=== PATIENT | male | born 1950 | race Caucasian/White ===

== ENCOUNTER 2019-01-02 18:14 | Inpatient (IN) ==
[2019-01-02] MEDS ORDERED: IOPAMIDOL 100 ML BOTTLE IV ONE (18:15)
[2019-01-02] MEDS ORDERED: ONDANSETRON 4 MG/2 ML VIAL IV ONE (18:31)
[2019-01-02] MEDS ORDERED: HYDROmorphone 2 MG/ML VIAL IV PRN (18:31)
[2019-01-02] MEDS ORDERED: 0.9 % SODIUM CHLORIDE 1,000 ML IV ONE ×3 (18:31→22:23)
[2019-01-02] MEDS ORDERED: IPRATROPIUM/ALBUTEROL 3 ML AMPUL.NEB NEB ONE (18:32)
[2019-01-02] MEDS ORDERED: VANCOMYCIN 1,000 MG in 0.9 % SODIUM CHLORIDE 250 ML IV ONE (18:33)
[2019-01-02] MEDS ORDERED: PIPERACILLIN SODIUM/TAZOBACTAM 3.375 GM in DEXTROSE 5% IN WATER 50 ML IV ONE (18:33)
--- NOTE | 2019-01-02 18:37 | Emergency Department Note ---
Abdominal Pain HPI - General Chief Complaint: Abdominal Pain Stated Complaint: Lower Abdominal Swelling/Pain Time Seen by Provider: 01/02/19 18:19 Source: patient Mode of arrival: ambulatory Limitations: no limitations - History of Present Illness HPI Narrative: 68-year-old male here for dyspnea and flank pain. He is febrile. He was in [facility] for pneumonia 3 weeks ago and then released. He had a Hollis catheter for urinary retention while there. Complaining of worsening dyspnea here. He is not on oxygen. He continues to smoke despite known COPD. He is having trouble urinating here as well. Patient notes that he had a traumatic fall against a chair fractured multiple left-sided ribs in the recent past - Related Data Home Medications Medication Instructions Recorded Confirmed albuterol sulfate 0.63 mg/3 mL 0.63 mg INHALATION Q4H PRN ml 06/01/18 11/30/18 solution for nebulization unknown medication restless leg PO 09/27/18 11/30/18 ciprofloxacin 750 mg tablet 750 mg PO BID 11/30/18 11/30/18 furosemide 40 mg tablet 40 mg PO QDAY 11/30/18 11/30/18 omeprazole 20 mg tablet,delayed 20 mg PO QDAY 11/30/18 11/30/18 release potassium chloride ER 10 mEq 10 meq PO QDAY 11/30/18 11/30/18 capsule,extended release prednisone 10 mg tablet 10 mg PO QDAY 11/30/18 11/30/18 ropinirole 5 mg tablet 5 mg PO TID 11/30/18 11/30/18 Previous Rx's Medication Instructions Recorded albuterol sulfate HFA 90 2 puff INHALATION TID PRN #54 g 07/06/18 mcg/actuation aerosol inhaler budesonide-formoterol HFA 160 2 puff INHALATION Q12H #30.6 g 07/06/18 mcg-4.5 mcg/actuation aerosol inhaler tiotropium bromide 2.5 2 puff INHALATION QDAY #12 g 07/06/18 mcg/actuation mist for inhalation Allergies Allergy/AdvReac Type Severity Reaction Status Date / Time No Known Drug Allergies Allergy Verified 11/30/18 10:46 Review of Systems All systems ED: reviewed and negative except as stated. Abdominal Pain PMH - Past Medical History Attestation: Yes: The following information was validated with the patient. PMFSH Narrative: Family History (Last Reviewed 11/30/18 @ 11:11 by Florentino Nam MD) Father Cancer Other No pertinent family history Medical History (Last Reviewed 11/30/18 @ 11:11 by Florentino Nam MD) Pulmonary nodules (Chronic) Hiatal hernia (Chronic) Gastroesophageal reflux disease (Chronic) Tobacco use (Chronic) HAYDEN (obstructive sleep apnea) (Chronic) COPD (chronic obstructive pulmonary disease) (Chronic) Other asthma (Chronic) Restless legs (Chronic) Smoking (Chronic) Chronic obstructive pulmonary disease with acute exacerbation (Chronic) Past Surgical History (Last Reviewed 11/30/18 @ 11:11 by Florentino Nam MD) No pertinent past surgical history (Chronic) Medical history: Reports: other (Large prostate) - Social History Smoking status: Current every day smoker Physical Exam Thin male with kyphotic posture noted. Normocephalic atraumatic. Bilateral mild conjunctival injection without icterus. No nasal discharge or congestion. Oropharynx is pink and moist. Neck is supple without lymphadenopathy thyromeg herbert or carotid bruit. Heart is regular rate and rhythm. Inferiorly displaced PMI. He is not moving air well and has notable rhonchi in all lung krishna but right upper field is the worst. I do not hear rales. Abdomen is soft nontender nondistended. No peritoneal signs but he is guarding a little bit. Flank tenderness is noted. No pedal edema. He is able to answer questions appropriately. Alert and oriented Limitations: no limitations Course Vital Signs Temperature 101.1 F H 01/02/19 18:15 Pulse Rate 88 01/02/19 18:15 Respiratory Rate 24 H 01/02/19 18:15 Blood Pressure 135/75 01/02/19 18:15 Pulse Oximetry (%) 90 01/02/19 18:15 Temperature 101.1 F H 01/02/19 18:15 Pulse Rate 69 01/02/19 22:09 Respiratory Rate 14 01/02/19 22:09 Blood Pressure 121/66 01/02/19 22:09 Pulse Oximetry (%) 96 01/02/19 22:09 Abdominal Pain - Lab Data Lab results reviewed: Yes I reviewed the patient's lab results. Result diagrams: 01/02/19 18:40 01/02/19 18:40 Lab Results 01/02/19 01/02/1919 Range/Units 18:40 18:40 18:40 WBC 10.6 (4.5-11.0) K/mcL RBC 4.23 L (4.50-5.90) M/mcL Hgb 13.7 (13.5-16.5) g/dL Hct 41.2 (41.0-55.0) % POC Hct 41.0 (41.0-55.0) % MCV 97.4 (80.0-100.0) fL MCH 32.4 (26.0-34.0) pg MCHC 33.3 (31.0-36.0) g/dL RDW 15.3 H (11.5-14.5) % Plt Count 219 (140-440) K/mcL MPV 8.8 (7.4-10.4) fL Gran % 78.6 H (38.0-78.0) % Lymph % (Auto) 15.0 L (15.5-49.0) % Glenn % (Auto) 5.9 (1.0-12.0) % Eos % (Auto) 0.1 (0.0-7.0) % Baso % (Auto) 0.4 (0.0-2.0) % Gran # 8.3 H (1.8-8.0) K/mcL Lymph # (Auto) 1.6 (1.5-4.8) K/mcL Glenn # (Auto) 0.6 (0.1-0.9) K/mcL Eos # (Auto) 0 (0.0-0.7) K/mcL Baso # (Auto) 0 (0.0-0.3) K/mcL VBG Lactic Acid (0.5-2.0) mmol/L POC Sodium 141 (133-145) mmol/L Sodium 144 (133-145) mmol/L POC Potassium 3.7 (3.3-5.1) mmol/L Potassium 3.8 (3.3-5.1) mmol/L POC Chloride 104 (96-108) mmol/L Chloride 105 (96-108) mmol/L Carbon Dioxide 27 (22-30) mmol/L POC Total CO2 28 (22-30) mmol/L Anion Gap 12.0 (8-16) POC BUN 28 H (8-23) mg/dl BUN 27 H (8-23) mg/dl Creatinine 0.8 (0.7-1.2) mg/dl POC Creatinine 0.7 (0.7-1.2) mg/dl GFR Calculation 91 Glucose 76 (70-105) mg/dL POC Glucose 73 (70-105) mg/dL Calcium 9.2 (8.6-10.4) mg/dl POC WB Ioniz Calcium 1.18 (1.16-1.32) mmol/L Total Bilirubin 0.3 (0.0-1.0) mg/dL AST 14 (0-37) U/l ALT 13 (0-40) U/l Alkaline Phosphatase 95 (39-117) U/L Troponin T (0-0.03) ng/ml Total Protein 6.5 (5.9-8.4) gm/dL Albumin 3.8 (3.2-5.2) gm/dL Globulin 2.7 (2.2-3.7) gm/dL Albumin/Globulin Ratio 1.4 (1.0-2.3) Lipase 17 (7-60) U/L Procalcitonin < 0.05 (<0.10) ng/mL 01/02/19 01/02/19 Range/Units 18:40 19:08 WBC (4.5-11.0) K/mcL RBC (4.50-5.90) M/mcL Hgb (13.5-16.5) g/dL Hct (41.0-55.0) % POC Hct (41.0-55.0) % MCV (80.0-100.0) fL MCH (26.0-34.0) pg MCHC (31.0-36.0) g/dL RDW (11.5-14.5) % Plt Count (140-440) K/mcL MPV (7.4-10.4) fL Gran % (38.0-78.0) % Lymph % (Auto) (15.5-49.0) % Glenn % (Auto) (1.0-12.0) % Eos % (Auto) (0.0-7.0) % Baso % (Auto) (0.0-2.0) % Gran # (1.8-8.0) K/mcL Lymph # (Auto) (1.5-4.8) K/mcL Glenn # (Auto) (0.1-0.9) K/mcL Eos # (Auto) (0.0-0.7) K/mcL Baso # (Auto) (0.0-0.3) K/mcL VBG Lactic Acid 2.0 (0.5-2.0) mmol/L POC Sodium (133-145) mmol/L Sodium (133-145) mmol/L POC Potassium (3.3-5.1) mmol/L Potassium (3.3-5.1) mmol/L POC Chloride (96-108) mmol/L Chloride (96-108) mmol/L Carbon Dioxide (22-30) mmol/L POC Total CO2 (22-30) mmol/L Anion Gap (8-16) POC BUN (8-23) mg/dl BUN (8-23) mg/dl Creatinine (0.7-1.2) mg/dl POC Creatinine (0.7-1.2) mg/dl GFR Calculation Glucose (70-105) mg/dL POC Glucose (70-105) mg/dL Calcium (8.6-10.4) mg/dl POC WB Ioniz Calcium (1.16-1.32) mmol/L Total Bilirubin (0.0-1.0) mg/dL AST (0-37) U/l ALT (0-40) U/l Alkaline Phosphatase (39-117) U/L Troponin T < 0.01 (0-0.03) ng/ml Total Protein (5.9-8.4) gm/dL Albumin (3.2-5.2) gm/dL Globulin (2.2-3.7) gm/dL Albumin/Globulin Ratio (1.0-2.3) Lipase (7-60) U/L Procalcitonin (<0.10) ng/mL Arterial blood gas showed elevated CO2 and hypoxia - Radiology Data Radiology results reviewed: Yes I reviewed the patient's radiology results. CT scan of the chest abdomen pelvis show multiple chronic findings. Concern for some secretions in the right mainstem bronchus which could be from aspiration. Notable left-sided multiple rib fractures. Disposition Pt seen by APPRENTICE ARCHITECT/PA only: No Clinical Impression: Dehydration, Hypoxia Aspiration pneumonia Qualifiers: Aspiration pneumonia type: unspecified Laterality: right Lung location: unspecified part of lung Qualified Code(s): J69.0 - Pneumonitis due to inhalation of food and vomit Summary: Suspect that flank pain caused by urinary retention again from large prostate plus or minus a urinary tract infection. Ordered bladder scan and urinalysis Dyspnea likely secondary to COPD but possible pneumonia as well with fever of 101. Start blood cultures and Zosyn and vancomycin for possible sepsis versus Sirs-patient has tachypnea and shortness of breath as well. ABG along with breathing treatment ABG shows mild hypercapnia and hypoxia. Oxygen started Patient received 2 L normal saline and did not urinate so bladder scan was done again-this showed 96 mL. Ordered another liter of fluid; creatinine was normal. He stated that he would need his prostate medicine in order to urinate so I ordered max dose tamsulosin for him CT scan shows possible aspiration but otherwise no cause noted for fever I discussed results with the patient. Because of the dehydration and fever, with likely aspiration pneumonia and hypoxia/hypercapnia I do think this patient needs to come in the hospital. I discussed the case with Dr. Matt, hospitalist who agreed to accept the patient for further care and evaluation Disposition: Xfer As Inpt ([facility]) Condition: Fair Referrals: Mohit Galarza ARNP [Primary Care Provider] -
[2019-01-02 18:56] LABS: POC Blood Urea Nitrogen 28 mg/dl (8-23); POC CO2 28 mmol/L (22-30); POC Calcium, Ionized 1.18 mmol/L (1.16-1.32); POC Chloride 104 mmol/L (96-108); POC Creatinine 0.7 mg/dl (0.7-1.2); POC Glucose, Random 73 mg/dL (70-105); POC Potassium 3.7 mmol/L (3.3-5.1); POC Sodium 141 mmol/L (133-145)
[2019-01-02 19:39] LABS: Basophils # (Auto) 0 K/mcL (0.0-0.3); Basophils % (Auto) 0.4 % (0.0-2.0); Eosinophils # (Auto) 0 K/mcL (0.0-0.7); Eosinophils % (Auto) 0.1 % (0.0-7.0); Granulocytes % (Auto) 78.6 % (38.0-78.0); Hematocrit 41.2 % (41.0-55.0); Hemoglobin 13.7 g/dL (13.5-16.5); Lymphocytes # (Auto) 1.6 K/mcL (1.5-4.8); Mean Cell Volume 97.4 fL (80.0-100.0); Mean Corpuscular HGB Conc 33.3 g/dL (31.0-36.0); Mean Platelet Volume 8.8 fL (7.4-10.4); Monocytes # (Auto) 0.6 K/mcL (0.1-0.9); Monocytes % (Auto) 5.9 % (1.0-12.0); Platelet Count 219 K/mcL (140-440); RBC 4.23 M/mcL (4.50-5.90); Red Cell Distribution Width 15.3 % (11.5-14.5); WBC 10.6 K/mcL (4.5-11.0)
[2019-01-02 19:59] LABS: ALT/SGPT 13 U/l (0-40); AST/SGOT 14 U/l (0-37); Albumin 3.8 gm/dL (3.2-5.2); Albumin/Globulin Ratio 1.4 (1.0-2.3); Alkaline Phosphatase 95 U/L (39-117); Bilirubin,Total 0.3 mg/dL (0.0-1.0); Blood Urea Nitrogen 27 mg/dl (8-23); Calcium 9.2 mg/dl (8.6-10.4); Carbon Dioxide 27 mmol/L (22-30); Chloride 105 mmol/L (96-108); Globulin 2.7 gm/dL (2.2-3.7); Glomerular Filtration Rate 91; Glucose 76 mg/dL (70-105)
[2019-01-02] MEDS ORDERED: TAMSULOSIN 0.4 MG CAPSULE PO ONE (22:30)
--- NOTE | 2019-01-02 22:42 | Internal Med History&Physical ---
Medical - H&P: [facility] Patient information: Note initiated : 01/02/19 at 10:40 pm Service Date, if different from initiated Date: [] Patient: Rob Ulrich a 68 y/o M admitted on for Lower Abdominal Swelling/Pain. Chief Complaint: [] History of present illness: Mr. Ulrich is a 68 year old M Presents to the ED complaining of lower abdominal swelling and cramping. He also feels constipated. Last bowel movement 2 days ago. He is also complaining of dyspnea. He feels because of the abdominal discomfort he is unable to fully cough up his phlegm. He has a chronic bronchitis cough productive of phlegm. He also feels wheezy. His breathing is been getting worse over the past few days. He also reports decreased urination, he reports poor oral intake Recently at [facility] for COPD exacerbation. Also found of urinary retention at that time and a Hollis was placed. In the ED he was found to have a fever of 101. No leukocytosis and procalcitonin was low. His lactate was 2.0. He was requiring oxygen and his PaO2 on room air was 55. CT chest abdomen pelvis showed some secretions in the right bronchus and apical scarring as well as emphysema.'s abdominal pelvic film showed a right inguinal hernia and moderate stool and gas throughout. He follows with Dr. Nam and is supposed to be on 3 L with any activity and 2 L at night. However, he does not adhere to that regimen. He appears quite labored, with conversational dyspnea. He denies any fevers or chills. Denies chest pain. States he has a CPAP machine at home but does not use it. Review of Systems: Pertinent positives as above. Denies he adache/fever/chills/nausea/vomiting/chest or abdominal pain/diarrhea. Remaining 10 point review of system reviewed negative Medical - H&P: PMH Medical history: Medical History (Last Reviewed 11/30/18 @ 11:11 by Florentino Nam MD) Pulmonary nodules (Chronic) Hiatal hernia (Chronic) Gastroesophageal reflux disease (Chronic) Tobacco use (Chronic) HAYDEN (obstructive sleep apnea) (Chronic) COPD (chronic obstructive pulmonary disease) (Chronic) Other asthma (Chronic) Restless legs (Chronic) Smoking (Chronic) Chronic obstructive pulmonary disease with acute exacerbation (Chronic) Past Surgical History (Last Reviewed 11/30/18 @ 11:11 by Florentino Nam MD) Cataract surgery Family History (Last Reviewed 11/30/18 @ 11:11 by Florentino Nam MD) Father Cancer Other No pertinent family history Social History (Last Updated 11/30/18 @ 13:18 by Florentino Nam MD) Half pack per day smoker Rare alcohol Lives by himself Ambulatory independent Medical - H&P: Meds Home Medications Medication Instructions Recorded Confirmed Type albuterol sulfate 0.63 mg/3 mL 0.63 mg INHALATION Q4H PRN ml 06/01/18 11/30/18 History solution for nebulization albuterol sulfate HFA 90 2 puff INHALATION TID PRN #54 g 07/06/18 11/30/18 Rx mcg/actuation aerosol inhaler budesonide-formoterol HFA 160 2 puff INHALATION Q12H #30.6 g 07/06/18 11/30/18 Rx mcg-4.5 mcg/actuation aerosol inhaler tiotropium bromide 2.5 2 puff INHALATION QDAY #12 g 07/06/18 11/30/18 Rx mcg/actuation mist for inhalation unknown medication restless leg PO 09/27/18 11/30/18 History ciprofloxacin 750 mg tablet 750 mg PO BID 11/30/18 11/30/18 History furosemide 40 mg tablet 40 mg PO QDAY 11/30/18 11/30/18 History omeprazole 20 mg tablet,delayed 20 mg PO QDAY 11/30/18 11/30/18 History release potassium chloride ER 10 mEq 10 meq PO QDAY 11/30/18 11/30/18 History capsule,extended release prednisone 10 mg tablet 10 mg PO QDAY 11/30/18 11/30/18 History ropinirole 5 mg tablet 5 mg PO TID 11/30/18 11/30/18 History Allergies Allergy/AdvReac Type Severity Reaction Status Date / Time No Known Drug Allergies Allergy Verified 11/30/18 10:46 Medical - H&P: Exam - Constitutional Vitals: Temp Pulse Resp BP Pulse Ox 101.1 F H 69 14 121/66 96 01/02/19 18:15 01/02/19 22:09 01/02/19 22:09 01/02/19 22:09 01/02/19 22:09 Exam: General: Alert, Awake, No acute Distress Eyes/N/T: EOMI, PEERL, DMM Head/Neck: neck supple, normocephalic atraumatic CV: RRR, No murmurs, normal s1/s2 Pulm: Diffuse bilateral wheezing and somewhat diminished, no rales Abd: soft, nontender, +BS x4, protuberant lower abdomen Ext: no clubbing/cyanosis/edema Neuro: Alert, no focal deficits, moves all extremities, CN 2-12 grossly intact, symmetrical strength b/l upper/lower, sensations intact b/l upper/lower Skin: warm/dry Medical - H&P: Reslt - Labs CBC & Chem 7: 01/02/19 18:40 01/02/19 18:40 Labs: Short CBC 01/02/19 Range/Units 18:40 WBC 10.6 (4.5-11.0) K/mcL Hgb 13.7 (13.5-16.5) g/dL Hct 41.2 (41.0-55.0) % Plt Count 219 (140-440) K/mcL BMP 01/02/19 18:40 Sodium 144 Potassium 3.8 Chloride 105 Carbon Dioxide 27 BUN 27 H Creatinine 0.8 Glucose 76 Calcium 9.2 Cardiac Enzymes 01/02/19 Range/Units 18:40 Troponin T < 0.01 (0-0.03) ng/ml Liver Function 01/02/19 Range/Units 18:40 Total Bilirubin 0.3 (0.0-1.0) mg/dL AST 14 (0-37) U/l ALT 13 (0-40) U/l Alkaline Phosphatase 95 (39-117) U/L Albumin 3.8 (3.2-5.2) gm/dL - Impressions CT chest abdomen pelvis with apical scarring secretions in the right bronchus inguinal hernia in the right moderate gas and stool throughout Medical - H&P: A/P - Narrative A/P Narrative: Assessment: *COPD exacerbation (3L w/Activity & 2L@night but not compliant) -follows with Dr. Nam -pct low *Aspiration of secretions: *Acute on chronic hypoxic respiratory failure and chronic hypercapnia: *Constipation: *Volume depletion: *HAYDEN noncompliant with CPAP: *BPH: Urinary retention at [facility] November admission *Tobacco abuse: *Pulmonary nodules: *GERD: *Cachexia/Malnutrition: * Plan: -Steroids (wean), nebs/RT, supp O2 -IS/Acapella -ST eval, dysphagia diet per ST -Bowel Regimen -hold home lasix -Dietary consult -s/p IVF's -pt/ot -ppx: lovenox/home ppi DNR
[2019-01-02 23:44] LABS: Lymphocytes % 19 % (15-49); Monocytes % (Manual) 8 % (1-12); Platelet Estimate NORMAL (NORMAL); RBC Morphology NORMAL (NORMAL); Segmented Neutrophils % 73 % (38-78)
[2019-01-02] MEDS ORDERED: MINERAL OIL 1 DOSE ENEMA PR ONE (23:46)
[2019-01-03] LABS: Appearance,Urine CLEAR; Bilirubin,Urine NEG (NEG); Color,Urine YELLOW; Culture Indicated,Urine NO; Glucose,Urine (UA) NEGATIVE (NEG); Ketones,Urine NEG (NEG); Leukocyte Esterase,Urine NEG /uL (NEG); Nitrate,Urine NEG (NEG); Protein,Urine NEG (NEG); Specific Gravity,Urine > 1.060 (1.000-1.035); Urine Blood NEG mg/dL (<0.03); Urobilinogen,Urine NEG (NEG)
[2019-01-03] MEDS ORDERED: POTASSIUM CHLORIDE 40 MEQ in DEXTROSE 5% IN WATER 500 ML IV PRN ×2 (00:07→11:09)
[2019-01-03] MEDS ORDERED: PROMETHAZINE 25 MG TABLET PO PRN ×2 (00:07→11:09)
[2019-01-03] MEDS ORDERED: ACETAMINOPHEN 325 MG TABLET PO PRN ×2 (00:07→11:09)
[2019-01-03] MEDS ORDERED: POTASSIUM CHLORIDE 20 MEQ TABLET PO PRN ×4 (00:07→11:09)
[2019-01-03] MEDS ORDERED: IPRATROPIUM/ALBUTEROL 3 ML AMPUL.NEB NEB PRN ×2 (00:07→11:09)
[2019-01-03] MEDS ORDERED: LACTULOSE 20 GM/30 ML ORAL.SOL PO ONE (00:07)
[2019-01-03] MEDS ORDERED: HYDROcodone/APAP 5/325MG TABLET PO PRN ×2 (00:07→11:09)
[2019-01-03] MEDS ORDERED: methylPREDNISolone SOD SUCC 125 MG/2 ML VIAL IV ONE (00:07)
[2019-01-03] MEDS ORDERED: MINERAL OIL 1 DOSE ENEMA PR ONE (00:07)
[2019-01-03] MEDS ORDERED: MAGNESIUM SULFATE 2 GM/50 ML BAG IV PRN ×2 (00:07→11:09)
[2019-01-03] MEDS ORDERED: POLYETHYLENE GLYCOL 3350 17 GM PACKET PO PRN ×2 (00:07→11:09)
[2019-01-03] MEDS ORDERED: SENNOSIDES 1 TABLET PO PRN ×2 (00:07→21:00)
[2019-01-03] MEDS ORDERED: SENNOSIDES 1 TABLET PO ONE ×2 (00:07→14:38)
[2019-01-03] MEDS ORDERED: METOCLOPRAMIDE 10 MG/2 ML VIAL IV PRN ×2 (00:07→11:09)
[2019-01-03] MEDS ORDERED: ONDANSETRON 4 MG/2 ML VIAL IV PRN ×2 (00:07→11:09)
[2019-01-03] MEDS ORDERED: LACTULOSE 20 GM/30 ML ORAL.SOL PO PRN ×2 (00:07→11:09)
[2019-01-03] MEDS ORDERED: LACTULOSE 20 GM/30 ML ORAL.SOL ONE (00:44)
[2019-01-03] MEDS ORDERED: methylPREDNISolone SOD SUCC 125 MG/2 ML VIAL ONE (00:44)
[2019-01-03] MEDS ORDERED: IPRATROPIUM/ALBUTEROL 3 ML AMPUL.NEB NEB ONE (01:14)
[2019-01-03] MEDS: IPRATROPIUM/ALBUTEROL 3 ML AMPUL.NEB NEB SCH ×4 (02:00→19:39)
[2019-01-03] MEDS ORDERED: BISACODYL 10 MG SUPP.RECT PR ONE ×2 (05:39→05:40)
[2019-01-03 05:59] LABS: Basophils # (Auto) 0 K/mcL (0.0-0.3); Basophils % (Auto) 0.2 % (0.0-2.0); Eosinophils # (Auto) 0 K/mcL (0.0-0.7); Eosinophils % (Auto) 0.2 % (0.0-7.0); Granulocytes % (Auto) 93.6 % (38.0-78.0); Hematocrit 42.8 % (41.0-55.0); Hemoglobin 13.8 g/dL (13.5-16.5); Lymphocytes # (Auto) 0.6 K/mcL (1.5-4.8); Lymphocytes % (Auto) 4.9 % (15.5-49.0); Mean Cell Volume 99.7 fL (80.0-100.0); Mean Corpuscular HGB Conc 32.2 g/dL (31.0-36.0); Mean Platelet Volume 8.8 fL (7.4-10.4); Monocytes # (Auto) 0.1 K/mcL (0.1-0.9); Monocytes % (Auto) 1.1 % (1.0-12.0); Platelet Count 231 K/mcL (140-440); RBC 4.29 M/mcL (4.50-5.90); Red Cell Distribution Width 15.5 % (11.5-14.5); WBC 11.7 K/mcL (4.5-11.0)
[2019-01-03] MEDS ORDERED: 0.9 % SODIUM CHLORIDE 10 ML SYRINGE IV SCH (06:00)
[2019-01-03 07:29] LABS: ALT/SGPT 13 U/l (0-40); AST/SGOT 15 U/l (0-37); Albumin 3.7 gm/dL (3.2-5.2); Albumin/Globulin Ratio 1.3 (1.0-2.3); Alkaline Phosphatase 99 U/L (39-117); Bilirubin,Direct < 0.2 mg/dL (0.0-0.3); Bilirubin,Total 0.4 mg/dL (0.0-1.0); Blood Urea Nitrogen 21 mg/dl (8-23); Calcium 8.6 mg/dl (8.6-10.4); Carbon Dioxide 22 mmol/L (22-30); Chloride 110 mmol/L (96-108); Globulin 2.8 gm/dL (2.2-3.7); Glomerular Filtration Rate 91; Glucose 88 mg/dL (70-105); Lactate Dehydrogenase 250 U/L (94-250); Phosphorous 2.9 mg/dL (2.7-4.5); Triglycerides 60 mg/dl (<150); Uric Acid 4.5 mg/dL (2.5-8.0)
--- NOTE | 2019-01-03 07:39 | Internal Med Progress Note ---
Medical - PN: Subj Patient information: Note initiated : 01/03/19 at 7:33 am Service Date, if different from initiated Date: [] Patient: Rob Ulrich a 68 y/o M admitted on 01/03/19 for Lower Abdominal Swelling/Pain. Chief Complaint: [] Interval history: Mr. Ulrich is a 68 year old M Presents to the ED complaining of lower abdominal swelling and cramping. He also feels constipated. Last bowel movement 2 days ago. He is also complaining of dyspnea. He feels because of the abdominal discomfort he is unable to fully cough up his phlegm. He has a chronic bronchitis cough productive of phlegm. He also feels wheezy. His breathing is been getting worse over the past few days. He also reports decreased urination, he reports poor oral intake Recently at [facility] for COPD exacerbation. Also found of urinary retention at that time and a Hollis was placed. In the ED he was found to have a fever of 101. No leukocytosis and procalcitonin was low. His lactate was 2.0. He was requiring oxygen and his PaO2 on room air was 55. CT chest abdomen pelvis showed some secretions in the right bronchus and apical scarring as well as emphysema.'s abdominal pelvic film showed a right inguinal hernia and moderate stool and gas throughout. He follows with Dr. Nam and is supposed to be on 3 L with any activity and 2 L at night. However, he does not adhere to that regimen. He appears quite labored, with conversational dyspnea. He denies any fevers or chills. Denies chest pain. States he has a CPAP machine at home but does not use it. 01/03 Refused straight cath last night. However this morning, unable to urinate and becoming very uncomfortable. Several attempts at straight cath per nursing schuyler led, Dr. Henning contacted and placed Hollis catheter. He much better after the catheter placed. He much better overall. Breathing is much improved. Feels like he is able to cough more. No bowel movement yet but feels like he needs to go soon. Review of Systems: denies headache/fever/chills/nausea/vomiting/chest or abdominal pain/diarrhea. Otherwise see above. - Constitutional Vitals: Vital Signs Temp Pulse Resp BP Pulse Ox 98.9 F 74 20 123/80 90 01/03/19 04:00 01/03/19 07:04 01/03/19 07:04 01/03/19 04:00 01/03/19 04:00 Period Temp Pulse Resp BP Sys/Zheng Pulse Ox Last 24 Hr 98.6 F-101.1 F 66-88 12-24 109-161/59-94 85-99 Intake and Output 01/02/19 01/03/19 01/03/19 21:59 05:59 13:59 Intake Total 1300 2000 Output Total 0 Balance 1300 1999 Weight 49.895 kg 53.581 kg Intake & Output: Intake & Output 01/02/19 01/03/19 01/03/19 21:59 05:59 13:59 Intake Total 1300 1999 Output Total 0 Balance 1300 1999 Weight 49.895 kg 53.581 kg Intake: IV 1300 2000 Sodium Chloride 0.9% 1,000 ml @ 1000 2000 Wide Open IV BOLUS ONE Rx#: [id number] Zosyn 3.375 gm In Dextrose 5% 50 in Water 50 ml @ 100 mls/hr IV ONCE ONE Rx#:[id number] Vancomycin 1,000 mg In Sodium 250 Chloride 0.9% 250 ml @ 250 mls/ hr IV ONCE ONE Rx#:[id number] Output: Void Amount 0 Other: # Bowel Movements 0 Exam: General: Alert, Awake, No acute Distress Eyes/N/T: EOMI, Head/Neck: neck supple, CV: RRR, No murmurs, Pulm: mild b/l wheezing and somewhat diminished still, no rales Abd: soft, nontender, +BS x4, protuberant lower abdomen Ext: no clubbing/cyanosis/edema Neuro: Alert, no focal deficits, moves all extremities, Skin: warm/dry Medical - PN: Obj Da - Labs CBC & Chem 7: 01/03/19 04:10 01/03/19 04:10 Labs: Abnormal Lab Results 01/03/19 01/03/19 01/02/19 04:10 04:10 23:05 WBC 11.7 H RBC 4.29 L RDW 15.5 H Gran % 93.6 H Lymph % (Auto) 4.9 L Gran # 11.0 H Lymph # (Auto) 0.6 L Sodium 146 H Chloride 110 H POC BUN BUN Ur Specific Flushing > 1.060 H 01/02/19 01/02/19 18:40 18:40 WBC RBC 4.23 L RDW 15.3 H Gran % 78.6 H Lymph % (Auto) 15.0 L Gran # 8.3 H Lymph # (Auto) Sodium Chloride POC BUN 28 H BUN 27 H Ur Specific Flushing Meds: Medications Acetaminophen (Tylenol) 650 mg PO Q6HP PRN PRN Reason: PAIN/FEVER > 101 Hydrocodone Bitart/Acetaminophen ([place] 5/325mg) 1 tab PO Q4HP PRN PRN Reason: PAIN LEVEL 3-6 Last Admin: 01/03/19 05:53 Dose: 1 tab Documented by: Albuterol/Ipratropium (Duoneb) 3 ml NEB Q6HRT [facility] Last Admin: 01/03/19 07:04 Dose: 3 ml Documented by: Albuterol/Ipratropium (Duoneb) 3 ml NEB Q6HP PRN PRN Reason: Shortness Of Breath Budesonide (Pulmicort) 0.5 mg NEB Q12 [facility] Last Admin: 01/03/19 07:04 Dose: 0.5 mg Documented by: Docusate Sodium (Colace) 100 mg PO BID ZAINA Enoxaparin Sodium (Lovenox) 30 mg SQ DAILY ZAINA Famotidine (Pepcid) 20 mg PO BID ZAINA Potassium Chloride 40 meq/ (Dextrose) 520 mls @ 130 mls/hr IV UD PRN PRN Reason: Potassium < 3 Magnesium Sulfate (Magnesium Sulfate) 2 gm in 50 mls @ 50 mls/hr IV UD PRN PRN Reason: Magnesium </= 1.6 Lactulose (Cephulac) 10 gm PO DAILYP PRN PRN Reason: Constipation Methylprednisolone Sodium Succinate (Solu-Medrol) 62.5 mg IV Q12 [facility] Metoclopramide HCl (Reglan) 10 mg IV Q6HP PRN PRN Reason: Nausea And Vomiting Ondansetron HCl (Zofran) 4 mg IV Q4HP PRN PRN Reason: Nausea And Vomiting Polyethylene Glycol (Miralax) 17 gm PO DAILYP PRN PRN Reason: Constipation Potassium Chloride (Kdur) 40 meq PO UD PRN PRN Reason: Potssium is 3-3.5 Potassium Chloride (Kdur) 40 meq PO UD PRN PRN Reason: Potassium < 3 Promethazine HCl (Phenergan) 0 mg PO Q6HP PRN PRN Reason: Nausea And Vomiting Ropinirole HCl (Requip) 5 mg PO TID [facility] Senna (Senokot) 2 tab PO HSP PRN PRN Reason: Constipation Sodium Chloride (Saline Flush) 10 ml IV Q8 [facility] Last Admin: 01/03/19 06:02 Dose: 10 ml Documented by: Tamsulosin HCl (Flomax) 0.4 mg PO HS [facility] Medical - PN: A/P - Time Spent With Patient Total time spent is greater than 50% in coordination of care (as documented) at patient's floor/unit and/or counseling patient: - Narrative A/P Narrative: Assessment: *COPD exacerbation (3L w/Activity & 2L@night at home but is not compliant) -follows with Dr. Nam *?Aspiration of secretions: *Acute on chronic hypoxic respiratory failure and chronic hypercapnia: *Constipation: *Volume depletion: resolved *Urinary retention: Hollis catheter placed by Dr. Henning *BPH: Urinary retention at [facility] November admission *HAYDEN noncompliant with CPAP: *Tobacco abuse: *Pulmonary nodules: *GERD: *Cachexia/Malnutrition: * Plan: -Steroids (wean), nebs/RT, supp O2 -IS/Acapella -ST eval, dysphagia diet per ST -Bowel Regimen -hold home lasix -Dietary consult -Maintain Hollis upon discharge and follow-up with Dr. Henning -pt/ot -ppx: lovenox/home ppi DNR Medical - PN: Qual - VTE Deep Vein Thrombosis/Pulmonary Embolism Present on Admission: No
--- NOTE | 2019-01-03 07:46 | Consultation ---
DATE OF CONSULTATION: 01/03/2019 REQUESTING PHYSICIAN: Derrick Matt DO HISTORY OF PRESENT ILLNESS: The patient is a 68-year-old gentleman who was admitted to the hospital for exacerbation of his COPD. In the ER postvoid residual was checked and this was 100 mL. He has not been able to urinate since being admitted and I have been asked to place a catheter. The nurses did try to put in a catheter and this was a 14 Bulgarian straight catheter, and it curled up and there was blood on the catheter. He states that he has been having problems with urination prior to this. He is on Flomax and Proscar and these do not seem to help. He gets up three or four times during the night. He does have a poor stream and does not feel like he empties his bladder. He has never had any surgery on his prostate. He presents now for evaluation. PAST MEDICAL HISTORY: Significant for COPD, hiatal hernia, gastroesophageal reflux, obstructive sleep apnea. PAST SURGICAL HISTORY: Cataract surgery. ALLERGIES: None. CURRENT MEDICATIONS: Please see the patient's list. SOCIAL HISTORY: Half a pack per day smoker, lives by himself, non-. REVIEW OF SYSTEMS: CARDIAC: Denies any chest pain. RESPIRATORY: Shortness of breath, difficulty in breathing at times. : Please see above. The rest of a 12-point review of systems is negative. PHYSICAL EXAMINATION: GENERAL: This is a pleasant gentleman in slight distress. VITAL SIGNS: As listed per nurse's notes. NECK: Supple. Trachea is in the midline. Mucosa is without lesion. LUNGS: Clear to auscultation. HEART: Regular rate and rhythm. ABDOMEN: Soft, nontender. Bladder is distended. No hernias appreciated. GENITOURINARY: Scrotum without lesion. No hydrocele, no varicocele. Testicles are normal size and consistency. Epididymi are without cysts. Penis is circumcised without plaques. Meatus is at the end of his penis. RECTAL: Deferred. EXTREMITIES: Without clubbing, cyanosis, edema. NEUROLOGIC: Cranial nerves II-XII intact. LYMPHATIC: No adenopathy was noted. IMPRESSION: The patient with urinary retention. I feel at this point he does need a catheter because he is not able to urinate. He was prepped and draped and a 20 Bulgarian coude tip catheter was placed without any difficulty. I did use lidocaine jelly. His urine was clear. PLAN: I would leave the catheter in until his clinical situation improves and then we can remove it and see if he can urinate. He should go back on his regular medications. I will then follow up as an outpatient. JeysonZ:[email or web address] Job ID: [id number] Doc ID: [id number] Lonnie Henning MD
[2019-01-03] MEDS ORDERED: FAMOTIDINE 20 MG TABLET PO SCH (09:00)
[2019-01-03] MEDS ORDERED: ENOXAPARIN 30 MG/0.3 ML SYRINGE SQ SCH (09:00)
[2019-01-03] MEDS ORDERED: rOPINIRole 0.25 MG TABLET PO SCH (09:00)
[2019-01-03] MEDS ORDERED: methylPREDNISolone SOD SUCC 125 MG/2 ML VIAL IV SCH (09:00)
[2019-01-03] MEDS ORDERED: DOCUSATE SODIUM 100 MG CAPSULE PO SCH (09:00)
[2019-01-03] MEDS ORDERED: AZITHROMYCIN 500 MG in DEXTROSE 5% IN WATER 250 ML IV SCH (09:00)
[2019-01-03] MEDS ORDERED: rOPINIRole 1 MG TABLET PO SCH (09:00)
[2019-01-03] MEDS ORDERED: BUDESONIDE 0.5 MG/2 ML AMPUL.NEB NEB SCH (09:00)
--- NOTE | 2019-01-03 09:33 | Discharge Summary ---
Medical - DS: Prov Patient information: Note initiated : 01/03/19 at 9:30 am Service Date, if different from initiated Date: [] Patient: Rob Ulrich 68 y/o M admitted on 01/03/19 for Lower Abdominal Swelling/Pain. Chief Complaint: [] Date of admission: 01/03/19 00:01 Discharge date: 01/04/19 Primary care physician: FRANKLIN Medina Consults: 01/02/19 Consult to Physician [CONS] Stat Comment: Consulting Provider: Derrick Matt Reason For Exam: Physician to Consult 01/03/19 06:48 Consult to Physician [CONS] Routine Comment: UR Consulting Provider: Lonnie Henning Reason For Exam: Physician to Consult Medical - DS: Meds - Discharge Medications Prescriptions: predniSONE [Prednisone] 40 mg PO [facility] #1 tab Active and Home Medications: Home Medications albuterol sulfate 0.63 mg/3 mL solution for nebulization 0.63 mg INHALATION Q4H PRN ml 06/01/18 [History Confirmed 01/03/19 Last Taken 01/01/19 21:00] albuterol sulfate HFA 90 mcg/actuation aerosol inhaler 2 puff INHALATION TID PRN #54 g 07/06/18 [Rx Confirmed 01/03/19 Last Taken 01/01/19 21:00] budesonide-formoterol HFA 160 mcg-4.5 mcg/actuation aerosol inhaler 2 puff INHALATION Q12H #30.6 g 07/06/18 [Rx Confirmed 01/03/19 Last Taken 01/02/19 07:00] tiotropium bromide 2.5 mcg/actuation mist for inhalation 2 puff INHALATION QDAY #12 g 07/06/18 [Rx Confirmed 01/03/19 Last Taken 01/02/19 07:00] furosemide 40 mg tablet 40 mg PO QDAY 11/30/18 [History Confirmed 01/03/19 Last Taken Unknown] omeprazole 20 mg tablet,delayed release 20 mg PO QDAY 11/30/18 [History Confirmed 11/30/18 Last Taken Unknown] potassium chloride ER 10 mEq capsule,extended release 10 meq PO QDAY 11/30/18 [History Confirmed 11/30/18 Last Taken Unknown] prednisone 10 mg tablet 10 mg PO QDAY 11/30/18 [History Confirmed 11/30/18 Last Taken Unknown] ropinirole 5 mg tablet 5 mg PO TID 11/30/18 [History Confirmed 01/03/19 Last Taken 01/02/19 00:00] Methocarbamol [Robaxin] 500 mg PO PRN PRN 01/03/19 [History Confirmed 01/03/19 Last Taken 01/02/19 12:00] Tamsulosin [Flomax] 0.4 mg PO HS 01/03/19 [History Confirmed 01/03/19 Last Taken 01/01/19 21:00] Medical - DS: Hosp Hospital Course: Mr. Ulrich is a 68 year old M Presents to the ED complaining of lower abdominal swelling and cramping. He also feels constipated. Last bowel movement 2 days ago. He is also complaining of dyspnea. He feels because of the abdominal discomfort he is unable to fully cough up his phlegm. He has a chronic bronchitis cough productive of phlegm. He also feels wheezy. His breathing is been getting worse over the past few days. He also reports decreased urination, he reports poor oral intake Recently at [facility] for COPD exacerbation. Also found of urinary retention at that time and a Hollis was placed. In the ED he was found to have a fever of 101. No leukocytosis and procalcitonin was low. His lactate was 2.0. He was requiring oxygen and his PaO2 on room air was 55. CT chest abdomen pelvis showed some secretions in the right bronchus and apical scarring as well as emphysema.'s abdominal pelvic film showed a right inguinal hernia and moderate stool and gas throughout. He follows with Dr. Nam and is supposed to be on 3 L with any activity and 2 L at night. However, he does not adhere to that regimen. He appears quite labored, with conversational dyspnea. He denies any fevers or chills. Denies chest pain. States he has a CPAP machine at home but does not use it. 01/03 Refused straight cath last night. However this morning, unable to urinate and becoming very uncomfortable. Several attempts at straight cath per nursing failed, Dr. Henning contacted and placed Hollis catheter. He feels much better after the catheter placed. He is much better overall. Breathing is much improved. Feels like he is able to cough more. No bowel movement yet but feels like he needs to go soon. 01/04 He continues to feel much better. Doing well Center to go home. Stable for discharge follow-up with urology. Assessment: *COPD exacerbation (3L w/Activity & 2L@night at home but is not compliant) -follows with Dr. Nam *Acute on chronic hypoxic respiratory failure and chronic hypercapnia: *Constipation: *Volume depletion: resolved *Urinary retention: Hollis catheter placed by Dr. Henning *BPH: Urinary retention at [facility] admission *HAYDEN noncompliant with CPAP: *Tobacco abuse: *Pulmonary nodules: *GERD: *Cachexia Discharge diagnosis: COPD exacerbation acute on chronic hypoxic respiratory failure Secondary discharge diagnosis: Urinary retention constipation volume depletion BPH struct of sleep apnea noncompliant with CPAP tobacco abuse pulmonary nodules GERD cachexia - Time Spent with Patient Total time spent providing and/or coordinating discharge services: Greater than 30 minutes Medical - DS: Exam - Constitutional Vitals: Vital Signs Temp Pulse Resp BP BP Pulse Ox 01/03/19 07:04 74 20 01/03/19 04:58 86 L 01/03/19 04:00 98.9 F 20 123/80 90 01/03/19 02:02 85 L 01/03/19 00:58 98 01/03/19 00:20 98.6 F 12 118/77 97 01/03/19 00:17 98.6 F 86 12 118/77 98 01/03/19 00:12 97 01/02/19 23:53 86 18 112/73 99 01/02/19 22:31 75 18 120/75 94 01/02/19 22:09 69 14 121/66 96 01/02/19 21:31 66 12 120/77 91 01/02/19 21:01 77 15 114/69 94 01/02/19 20:31 74 13 109/71 94 01/02/19 20:28 73 12 117/59 91 01/02/19 19:32 80 95 01/02/19 19:31 78 134/66 95 01/02/19 19:30 78 125/76 95 01/02/19 18:46 161/94 01/02/19 18:42 138/83 01/02/19 18:15 101.1 F H 88 24 H 135/75 90 Intake and Output 01/02/19 01/03/19 01/03/19 21:59 05:59 13:59 Intake Total 1300 2000 Output Total 0 Balance 1300 2000 Intake: IV 1300 2000 Sodium Chloride 0.9% 1,000 ml @ 1000 2000 Wide Open IV BOLUS ONE Rx#: [id number] Zosyn 3.375 gm In Dextrose 5% 50 in Water 50 ml @ 100 mls/hr IV ONCE ONE Rx#:[id number] Vancomycin 1,000 mg In Sodium 250 Chloride 0.9% 250 ml @ 250 mls/ hr IV ONCE ONE Rx#:[id number] Output: Void Amount 0 Other: Urine Appearance Straight Clear Urine Color Straight Pale # Bowel Movements 0 Weight 49.895 kg 53.581 kg Medical - DS: Data Labs on day of discharge: Labs from last 24 hours 01/03/19 01/03/19 01/03/19 04:10 04:10 04:00 WBC 11.7 H RBC 4.29 L Hgb 13.8 Hct 42.8 POC Hct MCV 99.7 MCH 32.1 MCHC 32.2 RDW 15.5 H Plt Count 231 MPV 8.8 Gran % 93.6 H Lymph % (Auto) 4.9 L [place] % (Auto) 1.1 Eos % (Auto) 0.2 Baso % (Auto) 0.2 Gran # 11.0 H Lymph # (Auto) 0.6 L [place] # (Auto) 0.1 Eos # (Auto) 0 Baso # (Auto) 0 Total Counted Seg Neutrophils % Band Neutrophils % Lymphocytes % Monocytes % (Manual) Platelet Estimate RBC Morphology VBG Lactic Acid POC Sodium Sodium 146 H POC Potassium Potassium 4.3 POC Chloride Chloride 110 H Carbon Dioxide 22 POC Total CO2 Anion Gap 14.0 POC BUN BUN 21 Creatinine 0.8 POC Creatinine GFR Calculation 91 Glucose 88 POC Glucose Uric Acid 4.5 Calcium 8.6 POC WB Ioniz Calcium Phosphorus 2.9 Magnesium 2.1 Total Bilirubin 0.4 Direct Bilirubin < 0.2 GGT 17 AST 15 ALT 13 Alkaline Phosphatase 99 Lactate Dehydrogenase 250 Troponin T C-Reactive Protein Total Protein 6.5 Albumin 3.7 Globulin 2.8 Albumin/Globulin Ratio 1.3 Prealbumin Triglycerides 60 Lipase Procalcitonin < 0.05 Urine Color Urine Appearance Urine pH Ur Specific [place] Urine Protein Urine Glucose (UA) Urine Ketones Urine Occult Blood Urine Nitrate Urine Bilirubin Urine Urobilinogen Ur Leukocyte Esterase Ur Culture Indicated? 01/02/19 01/02/19 01/02/19 23:05 19:08 18:50 WBC RBC Hgb Hct POC Hct MCV MCH MCHC RDW Plt Count MPV Gran % Lymph % (Auto) [place] % (Auto) Eos % (Auto) Baso % (Auto) Gran # Lymph # (Auto) [place] # (Auto) Eos # (Auto) Baso # (Auto) Total Counted Seg Neutrophils % Band Neutrophils % Lymphocytes % Monocytes % (Manual) Platelet Estimate RBC Morphology VBG Lactic Acid 2.0 POC Sodium Sodium POC Potassium Potassium POC Chloride Chloride Carbon Dioxide POC Total CO2 Anion Gap POC BUN BUN Creatinine POC Creatinine GFR Calculation Glucose POC Glucose Uric Acid Calcium POC WB Ioniz Calcium Phosphorus Magnesium Total Bilirubin Direct Bilirubin GGT AST ALT Alkaline Phosphatase Lactate Dehydrogenase Troponin T C-Reactive Protein Total Protein Albumin Globulin Albumin/Globulin Ratio Prealbumin 23.2 Triglycerides Lipase Procalcitonin Urine Color Yellow Urine Appearance Clear Urine pH 5.0 Ur Specific [place] > 1.060 H Urine Protein Neg Urine Glucose (UA) Negative Urine Ketones Neg Urine Occult Blood Neg Urine Nitrate Neg Urine Bilirubin Neg Urine Urobilinogen Neg Ur Leukocyte Esterase Neg Ur Culture Indicated? No 01/02/19 01/02/19 01/02/19 18:50 18:50 18:40 WBC RBC Hgb Hct POC Hct MCV MCH MCHC RDW Plt Count MPV Gran % Lymph % (Auto) [place] % (Auto) Eos % (Auto) Baso % (Auto) Gran # Lymph # (Auto) [place] # (Auto) Eos # (Auto) Baso # (Auto) Total Counted 100 Seg Neutrophils % 73 Band Neutrophils % Not Reportable Lymphocytes % 19 Monocytes % (Manual) 8 Platelet Estimate Normal RBC Morphology Normal VBG Lactic Acid POC Sodium Sodium POC Potassium Potassium POC Chloride Chloride Carbon Dioxide POC Total CO2 Anion Gap POC BUN BUN Creatinine POC Creatinine GFR Calculation Glucose POC Glucose Uric Acid Calcium POC WB Ioniz Calcium Phosphorus Magnesium Total Bilirubin Direct Bilirubin GGT AST ALT Alkaline Phosphatase Lactate Dehydrogenase Troponin T < 0.01 C-Reactive Protein < 0.3 Total Protein Albumin Globulin Albumin/Globulin Ratio Prealbumin Triglycerides Lipase Procalcitonin Urine Color Urine Appearance Urine pH Ur Specific [place] Urine Protein Urine Glucose (UA) Urine Ketones Urine Occult Blood Urine Nitrate Urine Bilirubin Urine Urobilinogen Ur Leukocyte Esterase Ur Culture Indicated? 01/02/19 01/02/19 01/02/19 18:40 18:40 18:40 WBC 10.6 RBC 4.23 L Hgb 13.7 Hct 41.2 POC Hct 41.0 MCV 97.4 MCH 32.4 MCHC 33.3 RDW 15.3 H Plt Count 219 MPV 8.8 Gran % 78.6 H Lymph % (Auto) 15.0 L [place] % (Auto) 5.9 Eos % (Auto) 0.1 Baso % (Auto) 0.4 Gran # 8.3 H Lymph # (Auto) 1.6 [place] # (Auto) 0.6 Eos # (Auto) 0 Baso # (Auto) 0 Total Counted Seg Neutrophils % Band Neutrophils % Lymphocytes % Monocytes % (Manual) Platelet Estimate RBC Morphology VBG Lactic Acid POC Sodium 141 Sodium 144 POC Potassium 3.7 Potassium 3.8 POC Chloride 104 Chloride 105 Carbon Dioxide 27 POC Total CO2 28 Anion Gap 12.0 POC BUN 28 H BUN 27 H Creatinine 0.8 POC Creatinine 0.7 GFR Calculation 91 Glucose 76 POC Glucose 73 Uric Acid Calcium 9.2 POC WB Ioniz Calcium 1.18 Phosphorus Magnesium Total Bilirubin 0.3 Direct Bilirubin GGT AST 14 ALT 13 Alkaline Phosphatase 95 Lactate Dehydrogenase Troponin T C-Reactive Protein Total Protein 6.5 Albumin 3.8 Globulin 2.7 Albumin/Globulin Ratio 1.4 Prealbumin Triglycerides Lipase 17 Procalcitonin < 0.05 Urine Color Urine Appearance Urine pH Ur Specific [place] Urine Protein Urine Glucose (UA) Urine Ketones Urine Occult Blood Urine Nitrate Urine Bilirubin Urine Urobilinogen Ur Leukocyte Esterase Ur Culture Indicated? Medical - DS: A/P - Patient/Caregiver Discharge Instructions Activity: increase activity as tolerated Diet: Regular Diet Additional Instructions: Use oxygen as prescribed by Dr. Nam, 3 L with activity and 2 L at night. Maintain Hollis catheter until follow-up with Dr. Henning Prescriptions: predniSONE [Prednisone] 40 mg PO [facility] #1 tab - Follow up Plan Follow up with: Mohit Galarza ARNP [Primary Care Provider] - Lonnie Henning MD [Physician] - Disposition: Home, Self-Care Prognosis: Fair Rehab Potential: Fair Overall status at discharge: patient is back to baseline Medical - DS: Qual - VTE Deep Vein Thrombosis/Pulmonary Embolism Present on Admission: No
--- NOTE | 2019-01-03 09:43 | Cat Scan Report ---
CLINICAL INFORMATION: Dyspnea, flank pain and urinary retention COMPARISON: Chest CT 05/16/2018 TECHNIQUE: Enteric contrast was utilized. 80 cc of Isovue-[id number] were injected intravenously, and 50 seconds later 2.5 mm helical slices were obtained from the lung apices through the subtrochanteric regions of the femurs. Following reconstruction, 2.5 mm sagittal, coronal and axial reformatted images were processed and reviewed at multiple windows and levels. 7 mm MIP reconstructions were obtained through the lungs to optimize nodule detection.The exam was performed using radiation dose optimization techniques including, but not limited to, automated exposure control, adjustment of the mA and/or kV according to patient size and use of iterative reconstruction technique. FINDINGS: Pulmonary parenchymal windows show moderate centrilobular emphysema featuring chronic bronchitis (elevated lung volumes and wall thickening/dilatation of the bronchi with bronchial secretions) and multiple bullae predominantly within the upper lobes. Findings are similar to previous study. There are no significant nodules and no diffuse /regional infiltrates. Pleural spaces are normal. Mediastinal windows show the heart is normal in size and configuration. Small hiatal hernia appreciated. The thoracic aorta and pulmonary arteries are normal in diameter. There is no adenopathy in the mediastinal hilar or axillary region. Thyroid is unremarkable. Abdominal images show the gallbladder and bile ducts, liver, both kidneys, adrenal glands, spleen, pancreas and abdominal aorta are normal in size configuration and attenuation without focal lesion. A 4 cm right inguinal hernia contains a segment of distal small bowel which does not appear to be incarcerated or obstructed. The stomach, small large bowel are symmetrically dilated compatible with mild ileus and there is moderate colonic stool. There is no free air, free fluid or adenopathy. Urinary bladder is normal. Prostate and seminal vesicles are unremarkable. Bone windows show minimal T5 mild T6 moderate T7 T8 and T9 and mild T10 compression fractures which are unchanged. Chronic bilateral L5-S1 spondylolysis again noted. A few bilateral posterior rib fractures are healing IMPRESSION: 1. Moderate centrilobular emphysematous changes - stable. No acute pulmonary disease. 2. 4 cm right inguinal hernia containing a short segment of distal small bowel but no evidence of incarceration or obstruction. 2. Mild ileus with moderate colonic stool 3. Compression fractures of the mid thoracic spine - stable. Chronic L5-S1 spondylolysis without spondylolisthesis. Bilateral posterior rib fractures. Interpreted and Authenticated by: Barney Hung 01/03/19
[2019-01-03] MEDS ORDERED: FLEETS ADULT ENEMA PR PRN (14:38)
[2019-01-03] MEDS ORDERED: FLEETS ADULT ENEMA PR ONE (14:38)
[2019-01-03] MEDS: 0.9 % SODIUM CHLORIDE 10 ML SYRINGE IV SCH ×2 (15:19→20:06)
[2019-01-03] MEDS: rOPINIRole 1 MG TABLET PO SCH ×2 (15:21→20:06)
[2019-01-03] MEDS: BUDESONIDE 0.5 MG/2 ML AMPUL.NEB NEB SCH (19:39)
[2019-01-03] MEDS: methylPREDNISolone SOD SUCC 125 MG/2 ML VIAL IV SCH (20:04)
[2019-01-03] MEDS: DOCUSATE SODIUM 100 MG CAPSULE PO SCH (20:05)
[2019-01-03] MEDS: FAMOTIDINE 20 MG TABLET PO SCH (20:05)
[2019-01-03] MEDS ORDERED: TAMSULOSIN 0.4 MG CAPSULE PO SCH ×2 (21:00)
[2019-01-04] MEDS ORDERED: NICOTINE 21 MG PATCH TOPICAL ONE (00:31)
[2019-01-04] MEDS: IPRATROPIUM/ALBUTEROL 3 ML AMPUL.NEB NEB SCH ×2 (00:42→07:56)
[2019-01-04] MEDS ORDERED: NICOTINE 21 MG PATCH ONE (01:52)
[2019-01-04 06:57] LABS: Blood Urea Nitrogen 20 mg/dl (8-23); Calcium 8.4 mg/dl (8.6-10.4); Carbon Dioxide 28 mmol/L (22-30); Chloride 101 mmol/L (96-108); Glomerular Filtration Rate 102; Glucose 108 mg/dL (70-105)
[2019-01-04] MEDS: 0.9 % SODIUM CHLORIDE 10 ML SYRINGE IV SCH (07:53)
[2019-01-04] MEDS: BUDESONIDE 0.5 MG/2 ML AMPUL.NEB NEB SCH (07:56)
[2019-01-04] MEDS ORDERED: AZITHROMYCIN 500 MG in DEXTROSE 5% IN WATER 250 ML IV SCH (09:00)
[2019-01-04] MEDS ORDERED: ENOXAPARIN 30 MG/0.3 ML SYRINGE SQ SCH (09:00)
[2019-01-04] MEDS ORDERED: PNEUMOCOCCAL 23-VAL P-SAC VAC 0.5 ML SYRINGE IM ONE (10:00)
[2019-01-04] MEDS ORDERED: NICOTINE 21 MG PATCH TOPICAL SCH (10:00)
[2019-01-04] MEDS: DOCUSATE SODIUM 100 MG CAPSULE PO SCH (10:05)
[2019-01-04] MEDS: rOPINIRole 1 MG TABLET PO SCH (10:06)
[2019-01-04] MEDS: methylPREDNISolone SOD SUCC 125 MG/2 ML VIAL IV SCH (10:06)
[2019-01-04] MEDS: FAMOTIDINE 20 MG TABLET PO SCH (10:06)
== END 2019-01-04 11:45 | disposition home or self-care (01) | DRG 190 ==
LOC: ED 18:14 → ICU 01-03
PROVIDERS: ADMIT Internal Medicine; ATTEND Internal Medicine